=== PATIENT | female | born 1935 | race Caucasian/White ===

== ENCOUNTER → 2016-07-28 | Outpatient (CLI) | payer MEDICARE, OTHER ==
[~2016-07-28] MED LIST: BACTRIM DS TABL1 TAB PO; DARVOCET-N 1001 TAB PO; DICLOFENAC PO; NEXIUM PO; OCCUVITE PO; OCUVITE TABLET1 TAB PO; ULTRAM PO; VIT B-12 PO; ZETIA PO; [UNRECOGNIZED DRUG - CODE] PO
--- NOTE | ~2016-07-28 | CT2 ---
[facility] A Service of [facility] RADIOLOGY TEXT RESULTS PATIENT: DEON HARDING LOCATION: [facility] : 33 UNIT #: [id number] AGE: [address]: Asia Mcgowan MD SEX: F ORDER DR: [id number] [address] [address] [id number] O MR#: [id number] Acc #: [id number] NAME: DEON HARDING : 1935 SEX: F STUDY DATE/TIME: 07/28/2016 14:16 UNIT: [facility] ROOM: STUDY DESCRIPTION: CT Abd and Pelv W Cont Attending Physician: Asia Mcgowan M.D. Referring Physician: Asia Mcgowan M.D. Ordering Physician: Asia Mcgowan M.D. Primary Care Physician: Jessica Moore A.P.R.N. MEDICAL IMAGING REPORT This report is preliminary unless electronic signature is present. EXAM Abdomen and pelvis CT with contrast, 07/28/2016. INDICATION Abdominal and pelvic pain in an 81-year-old female. "Feels movements inside the upper abdomen." History of hernia repair. No history of malignancy. TECHNIQUE Contrast-enhanced abdomen and pelvis CT was performed. This CT exam was performed with one or more of the following radiation dose reduction techniques: automatic exposure control, adjustment of mA and/or kV according to patient size, and iterative reconstruction. 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 There is associated atelectasis in the right lung base and the visualized lung bases are emphysematous. Aorta demonstrates atherosclerotic change. No aneurysm or dissection. Spleen and adrenal glands unremarkable. Pancreas atrophic. Gallbladder unremarkable. Liver demonstrates no focal liver mass. Kidneys unremarkable. No adenopathy or fluid collection in the abdomen. CT PELVIS: Probable prolapse of the bladder into the deep pelvis. There is streak artifact from left hip replacement. No free fluid or drainable fluid collection in the pelvis or adnexal mass. Uterus surgically absent. There is diverticulosis of the colon. Bowel demonstrates no inflammatory change or obstruction. Appendix normal. Inguinal canals unremarkable. STS. [facility] A Service of [facility] RADIOLOGY TEXT RESULTS PATIENT: DEON HARDING LOCATION: [facility] : 33 UNIT #: [id number] AGE: [address]: Asia Mcgowan MD SEX: F ORDER DR: There is degenerative change in the thoracolumbar spine. No suspicious bone lesion. There is dextroscoliosis. IMPRESSION 1. No clearly acute process identified. No bowel obstruction, drainable fluid collection, or focal area of inflammatory change and the appendix is normal. 2. Diverticulosis. 3. 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 4. Not mentioned above, there are reactive-appearing retroperitoneal and retrocrural nodes. The appearance is similar to the prior chest CT. Dictated by... Bertrand Thornton M.D. THIS IS AN ELECTRONICALLY VERIFIED REPORT Bertrand Thornton M.D. at 07/28/2016 7:17 PM MOUNA/macie TD: 07/28/2016 17:01 JOB #: [id number] MEDICAL IMAGING REPORT Page 1 of 1
== END | disposition home or self-care (01) ==
LOC: SCT 12:44
DX: R10.2 Pelvic and perineal pain (principal); R10.9 Unspecified abdominal pain; K57.90 Diverticulosis of intestine, part unspecified, without perforation or abscess without bleeding; Z90.710 Acquired absence of both cervix and uterus; Z96.642 Presence of left artificial hip joint
CPT/HCPCS: 74177; Q9967